=== PATIENT | female | born 1935 | race Caucasian/White ===

== ENCOUNTER → 2016-11-07 | Outpatient (CLI) | payer MEDICARE, BC ==
[~2016-11-07] MED LIST: ASPIRIN E.C. 8181 MG PO; CEPHALEXIN500 M1 PO; CHOLESTEROL MED; CORTISPORIN 1% OT; LEVOXYL0.075 MG PO; MECLIZINE HCL25 M1 PO; PRAVACHOL 40MG40 MG PO; PRILOSEC 20MG20 MG PO; SYNTHROID0.025 MG PO; TOPROL XL 25MG25 MG PO; VALIUM 5MG T5 MG/TAB PO
== END ==
LOC: MC.RAD 08:49
DX: Z12.31 Encounter for screening mammogram for malignant neoplasm of breast (principal)

== ENCOUNTER → 2017-12-15 | Outpatient (CLI) | payer MEDICARE, BC ==
[~2017-12-15] MED LIST changes: +LIPITOR 40MG TA40 MG PO; +PLAVIX 75MG TAB75 MG PO
== END ==
LOC: MC.RAD 08:58
DX: Z12.31 Encounter for screening mammogram for malignant neoplasm of breast (principal)

== ENCOUNTER 2018-02-26 16:12 | Emergency (ER) | payer MEDICARE, BC ==
[~2018-02-26] VITALS: Ht 157.5 cm; Wt 63.6 kg
[2018-02-26 16:16] VITALS: TEMP 98.3
[2018-02-26] MEDS ORDERED: EDOX60TA1 PO (16:41)
[2018-02-26 16:43] LABS: BASO % 0.3 % (0.0-2.0); EOS # 0.1 (0.0-0.7); EOS % 2.1 % (0-4.0); GRAN # 3.4 (1.4-6.5); GRAN % 54.8 % (42.2-75.2); HEMATOCRIT 37.4 % (37.0-47.0); HEMOGLOBIN 12.5 g/dl (12.5-16.0); LYMPH % 31.8 % (20.0-51.0); MEAN CELL VOLUME 91 fl (80.0-100.0); MEAN CORPUSCULAR HEMOGLOBIN 30 pg (27.0-31.0); MEAN CORPUSCULAR HGB CONC 33 g/dl (33.0-37.0); MEAN PLATELET VOLUME 9.4 fl (7.4-10.4); MONO # 0.7 (0.1-0.6); MONO % 10.7 % (1.7-9.3); PLATELET COUNT 224 K/mm3 (130-400); RED BLOOD COUNT 4.11 M/mm3 (4.10-5.30)
[2018-02-26 16:51] LABS: ALANINE AMINOTRANSFERASE 33 U/L (9-52); ALBUMIN 4.1 gm/dL (3.5-5.0); ALKALINE PHOSPHATASE 116 U/L (50-136); ANION GAP 11 mmol/L (7-16); AST,SGOT 33 U/L (15-37); BILIRUBIN,TOTAL 0.5 mg/dL (0.0-1.0); BLOOD UREA NITROGEN 18 mg/dL (7-17); CALCIUM 9.2 mg/dL (8.4-10.2); CARBON DIOXIDE 26 mmol/L (22-30); CHLORIDE 95 mmol/L (98-107); CREATININE, serum 0.79 mg/dL (0.52-1.25); GLUCOSE 118 mg/dL (74-106); POTASSIUM 4.2 mmol/L (3.4-5.0); SODIUM 132 mmol/L (137-145); TOTAL PROTEIN 7.8 gm/dL (6.4-8.2)
[2018-02-26 16:58] LABS: INR 1.1 (0.8-3.0); PROTHROMBIN TIME 12.1 SECONDS (9.7-12.8)
[2018-02-26 17:01] LABS: PARTIAL THROMBOPLASTIN TIME 38.8 SECONDS (26.0-37.0)
[2018-02-26 17:03] LABS: TROPONIN-I < 0.012 ng/mL (0.000-0.034)
[2018-02-26 18:40] VITALS: BP 144/68; PULSE 60
== END 2018-02-26 18:41 | disposition home or self-care (01) ==
LOC: COL.ER 16:12
PROVIDERS: Family Medicine
DX: K21.9 Gastro-esophageal reflux disease without esophagitis (principal); R51 Headache; I10 Essential (primary) hypertension; Z98.890 Other specified postprocedural states
CPT/HCPCS: C9113

== ENCOUNTER → 2019-02-14 | Outpatient (CLI) | payer MEDICARE, BC ==
[~2019-02-14] MED LIST changes: +EDOX60TA1 PO
== END ==
LOC: MC.RAD 09:48
DX: Z12.31 Encounter for screening mammogram for malignant neoplasm of breast (principal)

== ENCOUNTER → 2020-02-16 | Outpatient (CLI) | payer MEDICARE, BC | LOC: MC.RAD 10:01 | DX: Z12.31 Encounter for screening mammogram for malignant neoplasm of breast (principal) ==

== ENCOUNTER → 2021-04-17 | Outpatient (CLI) | payer MEDICARE, BC | LOC: MC.RAD 10:36 | DX: Z12.31 Encounter for screening mammogram for malignant neoplasm of breast (principal) ==